=== PATIENT | female | born 2000 | race Caucasian/White ===

== ENCOUNTER 2021-08-11 16:16 | Outpatient (RCR) | payer OTHER, SELFPAY ==
[2021-08-13] MEDS: RHO(D) IMMUNE GLOBULIN 300 MCG/2 ML SYRINGE IM (11:54)
== END 2021-11-09 23:59 | disposition home or self-care (01) ==
LOC: ANHLAB 16:16
PROVIDERS: PCP Obstetrics & Gynecology; Visit Provider Obstetrics & Gynecology
DX: Z29.13 Encounter for prophylactic Rho(D) immune globulin (principal); O26.859 Spotting complicating pregnancy, unspecified trimester; Z3A.00 Weeks of gestation of pregnancy not specified
CPT/HCPCS: 36415; 85461; 90384; 96372; J2790

== ENCOUNTER 2021-12-11 14:40 | Emergency (ER) | payer OTHER, SELFPAY ==
[2021-12-11 14:46] VITALS: BP 107/70; PULSE 100; RESP 18; TEMP 36.2; O2SAT 99
[2021-12-11] MEDS: SODIUM CHLORIDE 0.9% IV 1,000 ML 999 ML IV CONT (15:45)
[2021-12-11 15:55] LABS: Basophils Percent Auto 0.2 % (0.2-1.2); Eosinophils Absolute Auto 0.1 K/mm3 (0-0.3); Eosinophils Percent Auto 0.6 % (0-4.4); Hematocrit 32.3 % (37.0-47.0); Hemoglobin 10.5 g/dL (12.0-15.0); Immature Granulocyte Absolute 0.03 K/mm3 (0.00-0.031); Immature Granulocyte Percent A 0.3 % (0-0.5); Lymphocytes Absolute Auto 1.97 K/mm3 (0.9-3.2); Lymphocytes Percent Auto 21.7 % (18.3-44.2); Mean Corpuscular HGB Conc 32.5 g/dl (32-36); Mean Corpuscular Hemoglobin 27.3 pg (26-34); Mean Corpuscular Volume 83.9 fl (80-100); Mean Platelet Volume 10.9 fl (7.4-10.4); Monocytes Absolute Auto 0.5 K/mm3 (0.1-0.6); Monocytes Percent Auto 5.2 % (2.6-8.5); Neutrophils Absolute Auto 6.5 K/mm3 (1.3-6.7); Platelet Count Result 213 k/mm3 (150-375); Red Blood Count 3.85 M/mm3 (4.2-5.4); Red Cell Distribution Width 14.1 % (11.5-14.5); White Blood Count 9.1 K/mm3 (4.5-10.0)
--- NOTE | 2021-12-11 16:04 | PC.NURSE ---
patient refuses morphine for pain
[2021-12-11 16:05] LABS: Alanine Aminotransferase 14 U/L (6-35); Albumin Level 3.7 g/dL (3.5-5.1); Alkaline Phosphatase 83 U/L (38-126); Anion Gap 7 mmol/L (8-16); Aspartate Amino Transferase 18 U/L (14-36); Bilirubin,Total 0.3 mg/dL (0.2-1.3); Blood Urea Nitrogen 4 mg/dL (7-17); Calcium 8.4 mg/dL (8.4-10.2); Carbon Dioxide 23 mmol/L (22-30); Chloride 104 mmol/L (98-107); Estimated CRCL calculation 159 ml/min; Estimated Glomerular Filt Rate > 60; Glucose 101 mg/dL (65-110); Lipase 50 U/L (23-300); Sodium 134 mmol/L (137-145)
[2021-12-11 16:32] VITALS: BP 110/68; PULSE 78; RESP 18; O2SAT 99
--- NOTE | 2021-12-11 16:41 | ED.ABDPAIN ---
HPI - Abdominal Pain General Chief Complaint: Abdominal Pain Stated Complaint: epigastric burning Time Seen by Provider: 12/11/21 15:09 History of Present Illness HPI narrative: Patient is a 21-year-old female who presents ER with concerns for gallbladder issues. Reports she had previous where she had gallbladder issues at 39 weeks. It sounds as though it is what was cholestasis and not cholecystitis. She has not had her gallbladder removed. She reports she woke up today and she has been having discomfort in the epigastrium that radiates around both sides. No nausea or vomiting. No pain with eating or drinking. No fevers or chills or sweats. She is 25 weeks and just station. She feels baby moving. No vaginal bleeding or discharge. No urinary frequency urgency or dysuria. Has not found any modifying factors. Related Data Allergies Allergy/AdvReac Type Severity Reaction Status Date / Time No Known Allergies Allergy Unverified 08/17/21 10:28 Review of Systems Review of Systems: All systems reviewed & are unremarkable except as noted in HPI and below Constitutional: Constitutional: Denies chills, Denies fatigue and Denies fever(s) ENT: Denies nasal congestion and Denies sore throat Cardiovascular: Cardiovascular: Denies chest pain, Denies rapid heart rate and Denies radiating jaw, neck or arm pain Respiratory: Respiratory: Denies cough and Denies dyspnea Gastrointestinal: Gastrointestinal: Reports abdominal pain, Denies diarrhea, Denies nausea and Denies vomiting Genitourinary: Genitourinary: Denies abnormal vaginal bleeding, Denies nocturia, Denies dysuria, Denies pelvic pain and Denies flank pain PMFSH Past Medical History Medical History (Updated 12/11/21 @ 17:39 by Farshad Nevarez MD) Acute anxiety Depression PTSD (post-traumatic stress disorder) Surgical History Surgical History (Updated 12/11/21 @ 16:45 by Farshad Nevarez MD) No pertinent past surgical history Family History Family History Other Breast cancer Cerebrovascular accident Social History Social History (Updated 08/17/21 @ 10:29 by Maria C Gonzalez MA) Smoking status: Unknown if ever smoked Alcohol intake: never Substance use: former Substance use type: marijuana Gender identity (if verbalized by the patient): Female Sexual Orientation (if Verbalized by the Patient): Straight or Heterosexual Exam Narrative: GENERAL: Well-appearing, well-nourished, and in no acute distress. HEAD: Normocephalic, atraumatic. EYES: PERRL and EOMI. ENT: Mucous membranes moist. CHEST: Clear to auscultation. No respiratory distress. HEART: Regular rate and rhythm. Normal peripheral pulses. ABDOMEN: Soft, nontender, nondistended. Uterus palpated just above the umbilicus. EXTREMITIES: Normal range of motion. No edema. SKIN: Warm, dry, no rash. NEURO: Alert and oriented x3. PSYCH: Normal mood and affect. Course Course Emergency Course: Patient resting comfortably after hydration. Declined pain medication. Discussed treatment plan and need for follow-up and patient verbalized understanding. Vital Signs Vital signs: Vital Signs Temperature 97.2 F L 12/11/21 14:46 Pulse Rate 100 12/11/21 14:46 Respiratory Rate 18 12/11/21 14:46 Blood Pressure 107/70 12/11/21 14:46 Pulse Oximetry 99 12/11/21 14:46 Oxygen Delivery Room Air 12/11/21 14:46 Temperature 97.2 F L 12/11/21 14:46 Pulse Rate 78 12/11/21 16:32 Respiratory Rate 18 12/11/21 16:32 Blood Pressure 110/68 12/11/21 16:32 Pulse Oximetry 99 12/11/21 16:32 Oxygen Delivery Room Air 12/11/21 14:46 MDM - Abdominal Pain Lab Data Result diagrams: 12/11/21 15:42 12/11/21 15:42 Labs: Lab Results 12/11/21 12/11/21 Range/Units 15:42 15:42 WBC 9.1 (4.5-10.0) K/mm3 RBC 3.85 L (4.2-5.4) M/mm3 Hgb 10.5 L (12.0-15.0) g/dL Hct
[2021-12-11 17:54] VITALS: BP 112/68; PULSE 80; RESP 18; O2SAT 99
== END 2021-12-11 17:55 | disposition home or self-care (01) ==
PROVIDERS: Emergency Provider Emergency Medicine
DX: O26.892 Other specified pregnancy related conditions, second trimester (principal); R10.13 Epigastric pain; Z3A.25 25 weeks gestation of pregnancy
CPT/HCPCS: 36415; 80053; 83690; 85025; 96360; 99283; J7030

== ENCOUNTER 2022-01-05 16:04 | Emergency (ER) | payer OTHER, SELFPAY ==
[2022-01-05] VITALS (7 sets, daily range): BP systolic 100–120; BP diastolic 70–82; PULSE 75–105; RESP 13–27; TEMP 36.9; O2SAT 98–100
--- NOTE | ~2022-01-05 | CT_ITS ---
EXAMINATION: CTA chest PE protocol DATE: 01/05/2022 17:19 INDICATION: Chest pain and shortness of breath TECHNIQUE: Computed tomography (CT) pulmonary angiogram of the chest was performed with 100 mL Omnipa que-350 intravenous contrast. Additional 3D reconstructions utilizing coronal maximum intensity proje ction (MIP) were performed. Automated exposure control and iterative reconstruction technique were em ployed. The dose-length product was 370.64 mGy-cm. COMPARISON: None FINDINGS: Excellent contrast opacification of the pulmonary arteries. There is mild streak artifact from dense contrast in the superior vena cava and right atrium. No significant motion artifact. No pulmonary emb olism. Small lung volumes with mild dependent atelectasis in the bilateral lower lobes. No pulmonary edema, pneumonia, pulmonary edema or pleural effusion. Calcified right lower lobe nodule consistent w ith old granulomatous disease. Heart size is normal. No pericardial effusion. Thoracic aorta is summer l in caliber with no dissection. No pathologically enlarged thoracic lymphadenopathy. Bones are unrem arkable. IMPRESSION: 1. No pulmonary embolism or other acute cardiopulmonary disease. Reviewed, dictated and finalized at location A. ENT SAFETY OFFICER
--- NOTE | ~2022-01-05 | XR_ITS ---
EXAMINATION: XR chest 1V portable DATE: 01/05/2022 16:48 INDICATION: Chest pain and shortness of breath during early third trimester . TECHNIQUE: AP view of the chest was obtained. COMPARISON: None FINDINGS: The lungs are clear with no focal airspace opacities, pulmonary edema, pleural effusion or pneumothor ax. The cardiomediastinal silhouette is normal. Visualized bones and soft tissues are unremarkable. IMPRESSION: 1. Normal chest radiograph. Reviewed, dictated and finalized at location A. ACT INSTRUCTOR IMPRESSION: 1. Normal chest radiograph.
[2022-01-05 16:45] LABS: Basophils Percent Auto 0.4 % (0.2-1.2); Eosinophils Percent Auto 0.4 % (0-4.4); Hematocrit 31.7 % (37.0-47.0); Hemoglobin 10.2 g/dL (12.0-15.0); Immature Granulocyte Absolute 0.04 K/mm3 (0.00-0.031); Immature Granulocyte Percent A 0.4 % (0-0.5); Lymphocytes Absolute Auto 1.93 K/mm3 (0.9-3.2); Lymphocytes Percent Auto 18.7 % (18.3-44.2); Mean Corpuscular HGB Conc 32.2 g/dl (32-36); Mean Corpuscular Hemoglobin 27.1 pg (26-34); Mean Corpuscular Volume 84.3 fl (80-100); Monocytes Absolute Auto 0.6 K/mm3 (0.1-0.6); Neutrophils Absolute Auto 7.7 K/mm3 (1.3-6.7); Neutrophils Percent Auto 74.1 % (45.5-73.1); Platelet Count Result 217 k/mm3 (150-375); Red Blood Count 3.76 M/mm3 (4.2-5.4); Red Cell Distribution Width 13.9 % (11.5-14.5); White Blood Count 10.3 K/mm3 (4.5-10.0)
[2022-01-05 16:54] LABS: Alanine Aminotransferase 14 U/L (6-35); Albumin Level 3.8 g/dL (3.5-5.1); Alkaline Phosphatase 100 U/L (38-126); Anion Gap 9 mmol/L (8-16); Aspartate Amino Transferase 18 U/L (14-36); Bilirubin,Total 0.3 mg/dL (0.2-1.3); Blood Urea Nitrogen 6 mg/dL (7-17); Calcium 8.7 mg/dL (8.4-10.2); Carbon Dioxide 21 mmol/L (22-30); Chloride 103 mmol/L (98-107); Estimated CRCL calculation 162 ml/min; Estimated Glomerular Filt Rate > 60; Glucose 73 mg/dL (65-110); Potassium 4.3 mmol/L (3.4-5.0); Sodium 133 mmol/L (137-145)
[2022-01-05 16:55] LABS: INR 1.1; Partial Thromboplastin Time 28.1 SECONDS (22.3-36.8); Prothrombin Time 13.4 Seconds (11.1-14.7)
[2022-01-05 16:59] LABS: D Dimer 1.38 ug/mL (<0.48)
[2022-01-05 17:06] LABS: Troponin I < 0.012 ng/mL (0.000-0.034)
--- NOTE | 2022-01-05 17:45 | ECG_ITS ---
Measurements Intervals [place] Rate: 87 P: 5 IA: 131 QRS: 23 QRSD: 76 T: 3 QT: 338 QTc: 408 Interpretive Statements SINUS RHYTHM BORDERLINE ST-T WAVE ABNORMALITY- INFERIOR LEADS BASELINE ARTIFACT- I, II BORDERLINE ECG NO PREVIOUS ECG AVAILABLE FOR COMPARISON Electronically Signed On 01-05-2022 20:52:37 BAND TIER by Alessio Steven D.O.
--- NOTE | 2022-01-05 18:56 | ED.CHESTPAIN ---
HPI - Chest Pain General Chief Complaint: Chest Pain Stated Complaint: chest pain Time Seen by Provider: 01/05/22 16:26 History of Present Illness HPI narrative: Patient is a 21-year-old female who presents ER with chest pain. She reports that its occasionally sharp pain in the center and then will radiate to the left side, full ache and pressure. Sometimes worsens with extending backwards. She is currently . She reports has been having some intermittent abdominal discomfort and lost couple weeks. Her OB is asked her to go to OB triage to be evaluated but she has not had time and thus not gone. No vaginal bleeding or discharge. No urinary frequency urgency or dysuria. Reports family history of blood clots. No calf pain or leg swelling. Related Data Allergies Allergy/AdvReac Type Severity Reaction Status Date / Time No Known Allergies Allergy Unverified 08/17/21 10:28 Review of Systems Review of Systems: All systems reviewed & are unremarkable except as noted in HPI and below Constitutional: Constitutional: Denies chills, Denies fatigue and Denies fever(s) ENT: Denies nasal congestion and Denies sore throat Cardiovascular: Cardiovascular: Reports chest pain, Denies radiating jaw, neck or arm pain and Denies slow heart rate Respiratory: Respiratory: Denies cough, Reports dyspnea and Denies wheezing Gastrointestinal: Gastrointestinal: Reports abdominal pain, Denies nausea and Denies vomiting Genitourinary: Genitourinary: Denies nocturia, Denies dysuria and Denies flank pain Neurologic: Denies focal weakness and Denies numbness PMFSH Past Medical History Medical History (Updated 01/05/22 @ 18:58 by Farshad Nevarez MD) Acute anxiety Depression PTSD (post-traumatic stress disorder) Surgical History Surgical History (Updated 12/11/21 @ 16:45 by Farshad Nevarez MD) No pertinent past surgical history Family History Family History Other Breast cancer Cerebrovascular accident Social History Social History (Updated 08/17/21 @ 10:29 by Maria C Gonzalez MA) Smoking status: Unknown if ever smoked Alcohol intake: never Substance use: former Substance use type: marijuana Gender identity (if verbalized by the patient): Female Sexual Orientation (if Verbalized by the Patient): Straight or Heterosexual Exam Narrative: GENERAL: Well-appearing, well-nourished, and in no acute distress. HEAD: Normocephalic, atraumatic. EYES: PERRL and EOMI. ENT: Mucous membranes moist. CHEST: Clear to auscultation. No respiratory distress. HEART: Regular rate and rhythm. Normal peripheral pulses. ABDOMEN: Soft, uterus palpated above the umbilicus, nondistended. EXTREMITIES: Normal range of motion. No edema. SKIN: Warm, dry, no rash. NEURO: Alert and oriented x3. PSYCH: Normal mood and affect. Course Course Emergency Course: Patient informed of results. OB has been down here. Patient has a reactive strip. Discharge. Vital Signs Vital signs: Vital Signs Temperature 98.4 F 01/05/22 16:08 Pulse Rate 87 01/05/22 16:08 Respiratory Rate 20 01/05/22 16:08 Blood Pressure 100/73 01/05/22 16:08 Pulse Oximetry 100 01/05/22 16:08 Oxygen Delivery Room Air 01/05/22 16:08 Temperature 98.4 F 01/05/22 16:08 Pulse Rate 75 01/05/22 19:27 Respiratory Rate 16 01/05/22 19:27 Blood Pressure 120/75 01/05/22 19:27 Pulse Oximetry 100 01/05/22 19:27 Oxygen Delivery Room Air 01/05/22 16:08 MDM - Chest Pain Lab Data Result diagrams: 01/05/22 16:40 01/05/22 16:40 Labs: Lab Results 01/05/22 01/05/22 01/05/22 Range/Units 16:40 16:40 16:40 WBC 10.3 H (4.5-10.0) K/mm3 RBC 3.76 L (4.2-5.4) M/mm3 Hgb 10.2 L (12.0-15.0) g/dL Hct 31.7 L (37.0-47.0) % MCV 84.3 (80-100) fl MCH 27.1 (26-34) pg MCHC 32.2 (32-36) g/dl RDW 13.9 (11.5-14.5) % Pl
--- NOTE | 2022-01-05 19:17 | PC.NURSE ---
pt states that she has been feeling lower abdominal pressure and pain for many days and that it does not go away. states that she has not had any vaginal bleeding recently or any leaking of fluid. states positive movement. states she has severe anxiety and that her stomach pain could be due to not eating. States she does not plan on eating today after discharge because she gets fat during and her brain says food is a bad thing . pt also states doctor told her baby is IUGR. educated patient on importance of eating and making sure baby is getting proper nutrients. pt verbalizes understanding of importance of eating but states she still can't do it. ER doctor notified of these statements. NST reactive.
== END 2022-01-05 19:28 | disposition home or self-care (01) ==
PROVIDERS: Emergency Provider Emergency Medicine
DX: O26.893 Other specified pregnancy related conditions, third trimester (principal); R07.9 Chest pain, unspecified; Z3A.29 29 weeks gestation of pregnancy; R94.31 Abnormal electrocardiogram [ECG] [EKG]
CPT/HCPCS: 36415; 71045; 71275; 80053; 84484; 85025; 85380; 85610; 85730; 93005; 99284; Q9967

== ENCOUNTER 2022-01-30 16:40 | Observation (INO) | payer OTHER, SELFPAY ==
[2022-01-30] VITALS (7 sets, daily range): BP systolic 104; BP diastolic 64; PULSE 90–112; O2SAT 95–99; BMI 32.6
--- NOTE | 2022-01-30 18:05 | PC.NURSE ---
Pt taken to ED for evaluation of gallbladder.
--- NOTE | 2022-01-30 18:15 | OBADM ---
This patient, Elmira Soto, admitted to the OB room OB Post 117 for observation. Patient/family oriented to hospital policies and general routines including ID bracelet, bed and alarms, visiting hours, pain management, procedures, bathroom and other care routines, personal items, smoking policy, room service/diet, and visiting hours. Patient/Family are encouraged to report perceived risks to care and to ask questions if they do not understand what they are told or what they should do.
--- NOTE | 2022-02-19 20:36 | PM.OBTRLD ---
OB - Triage/Final Diagnosis Visit Information Comments/Additional reasons for admission: I have assessed the risk for this patient, Elmira Soto, and determined that she would benefit from observation care. Final Diagnosis (1) Abdominal pain: Code(s): R10.9 - Unspecified abdominal pain Status: Acute
== END 2022-01-30 18:00 | disposition home or self-care (01) ==
PROVIDERS: Admitting Provider Obstetrics & Gynecology; Visit Provider Obstetrics & Gynecology
DX: O26.893 Other specified pregnancy related conditions, third trimester (principal); R10.9 Unspecified abdominal pain; Z3A.32 32 weeks gestation of pregnancy
CPT/HCPCS: 84112; G0378; G0379

== ENCOUNTER 2022-01-30 18:01 | Emergency (ER) | payer OTHER, SELFPAY | END 2022-01-30 19:17 | disposition left against medical advice (07) | DX: Z53.21 Procedure and treatment not carried out due to patient leaving prior to being seen by health care provider (principal) | CPT/HCPCS: 99199 ==

== ENCOUNTER 2022-03-04 17:15 | Observation (INO) | payer OTHER, SELFPAY ==
[2022-03-04] VITALS (20 sets, daily range): BP systolic 98–109; BP diastolic 64–74; PULSE 88–121; O2SAT 97–100; BMI 31.8
[2022-03-04] MEDS: CYCLOBENZAPRINE HCL 10 MG TABLET PO (18:54)
--- NOTE | 2022-03-08 05:52 | PM.OBTRLD ---
OB - Triage/Final Diagnosis Visit Information Date of evaluation: 03/04/22 Reason for evaluation: other (fall, rh negative) Comments/Additional reasons for admission: I have assessed the risk for this patient, Elmira Soto, and determined that she would benefit from observation care. Evaluation Laboratory results: Laboratory Tests 03/04/22 18:47 KB Hemoglobin Negative
== END 2022-03-04 23:00 | disposition home or self-care (01) ==
PROVIDERS: Admitting Provider Obstetrics & Gynecology; Visit Provider Obstetrics & Gynecology
DX: Z04.3 Encounter for examination and observation following other accident (principal); O36.0930 Maternal care for other rhesus isoimmunization, third trimester, not applicable or unspecified; Z3A.37 37 weeks gestation of pregnancy
CPT/HCPCS: 36415; 59025; 85460; A9270; G0378; G0379

== ENCOUNTER 2022-03-11 22:02 | Inpatient (IN) | payer OTHER, SELFPAY ==
--- NOTE | 2022-03-11 22:02 | LDADM ---
This patient, Elmira Soto, was admitted to Labor/Delivery/Recovery 106 on 03/11/22 at 22:02. Plans for labor, pain management and were discussed with patient. Patient/family oriented to hospital policies and general routines including ID bracelet, bed and alarms, visiting hours, pain management, procedures, bathroom and other care routines, personal items, smoking policy, room service/diet and guest tray routines, security routines, and visiting hours. Patient/Family are encouraged to report perceived risks to care and to ask questions if they do not understand what they are told or what they should do. See OBIX for further documentation.
[2022-03-11 23:45] VITALS: BP 102/79; PULSE 83
[2022-03-12] VITALS (143 sets, daily range): BP systolic 84–132; BP diastolic 42–82; PULSE 63–169; RESP 15–18; TEMP 36.4–36.8; O2SAT 93–100; BMI 33.0
[2022-03-12] MEDS: LACTATED RINGERS 1,000 ML 125 ML IV CONT ×3 (00:16→04:42)
[2022-03-12 00:52] LABS: Basophils Percent Auto 0.3 % (0.2-1.2); Eosinophils Percent Auto 0.4 % (0-4.4); Hematocrit 28.9 % (37.0-47.0); Immature Granulocyte Absolute 0.03 K/mm3 (0.00-0.031); Immature Granulocyte Percent A 0.3 % (0-0.5); Lymphocytes Absolute Auto 2.24 K/mm3 (0.9-3.2); Lymphocytes Percent Auto 23.4 % (18.3-44.2); Mean Corpuscular HGB Conc 31.1 g/dl (32-36); Mean Corpuscular Hemoglobin 24.1 pg (26-34); Mean Corpuscular Volume 77.5 fl (80-100); Mean Platelet Volume 11.5 fl (7.4-10.4); Monocytes Absolute Auto 0.6 K/mm3 (0.1-0.6); Monocytes Percent Auto 6.1 % (2.6-8.5); Neutrophils Absolute Auto 6.7 K/mm3 (1.3-6.7); Neutrophils Percent Auto 69.5 % (45.5-73.1); Platelet Count Result 206 k/mm3 (150-375); Red Blood Count 3.73 M/mm3 (4.2-5.4); Red Cell Distribution Width 15.8 % (11.5-14.5); White Blood Count 9.6 K/mm3 (4.5-10.0)
--- NOTE | 2022-03-12 00:56 | WPDANESEPPF ---
Anes - Initial Pre Proc Eval Procedure: Labor Epidural Date/Time: 03/12/22 00:56 Surgeon: Casandra Fitzpatrick MD Pre Op Diagnosis: IUP Pre Op Diagnosis: IUP Patient Data Age: 21 Gender: F Height: 1.65 m Weight: 90 kg Last Vital Signs Pulse 83 03/12/22 00:47 BP 108/72 03/12/22 00:47 O2 Del Method Room Air 03/12/22 00:06 Allergies Allergy/AdvReac Type Severity Reaction Status Date / Time No Known Allergies Allergy Verified 03/12/22 00:04 Home Medications Medication Instructions Recorded Confirmed Type vitamin no.102-iron 90 1 cap PO DAILY #90 caps 08/17/21 03/12/22 Rx mg-folate 1 mg-dha 200 mg capsule fluoxetine 20 mg capsule 20 mg PO DAILY 02/22/22 03/12/22 History Laboratory Tests 03/12/22 03/12/22 00:18 00:18 WBC 9.6 K/mm3 K/mm3 (4.5-10.0) RBC 3.73 M/mm3 L M/mm3 (4.2-5.4) Hgb 9.0 g/dL L g/dL (12.0-15.0) Hct 28.9 % L % (37.0-47.0) MCV 77.5 fl L fl (80-100) MCH 24.1 pg L pg (26-34) MCHC 31.1 g/dl L g/dl (32-36) RDW 15.8 % H % (11.5-14.5) Plt Count 206 k/mm3 k/mm3 (150-375) MPV 11.5 fl H fl (7.4-10.4) Immature Gran % (Auto) 0.3 % % (0-0.5) Neut % (Auto) 69.5 % % (45.5-73.1) Lymph % (Auto) 23.4 % % (18.3-44.2) [facility] % (Auto) 6.1 % % (2.6-8.5) Eos % (Auto) 0.4 % % (0-4.4) Baso % (Auto) 0.3 % % (0.2-1.2) Lymph # (Auto) 2.24 K/mm3 K/mm3 (0.9-3.2) [facility] # (Auto) 0.6 K/mm3 K/mm3 (0.1-0.6) Eos # (Auto) 0.0 K/mm3 K/mm3 (0-0.3) Baso # (Auto) 0.0 K/mm3 K/mm3 (0.0-0.1) Abs Immat Gran (auto) 0.03 K/mm3 K/mm3 (0.00-0.031) Absolute Neuts (auto) 6.7 K/mm3 K/mm3 (1.3-6.7) Absolute Nucleated RBC 0.0 K/mm3 K/mm3 (0.0-0.012) Nucleated RBC % 0.0 % % (0.0-0.2) RPR Pending ECG: NSR Patient hx anesthesia problems: none Family hx anesthesia problems: none Results Review: All pre-operative results and documents have been reviewed as part of the pre-operative evaluation. [facility] Past Medical History Medical History Acute anxiety Depression PTSD (post-traumatic stress disorder) Surgical History Surgical History No pertinent past surgical history Family History Family History Grandparent History of blood clots Heart attack Cerebrovascular accident Mother Histoplasmosis Father Drug addict Other Patient's mother is Social History Social History Smoking status: Former smoker Alcohol intake: never Substance use: former Substance use type: marijuana Last use: stopped at 8 wks of Lack of Transportation: YES Lack of Food: Never True Current Housing: I Have Housing Concerned About Future Housing: No Difficulty Paying Gas/Electric Bills: No Difficulty Paying for Meds: No Currently Unemployed: No Education: High School Diploma/GED Difficulty w/ Childcare or Family Care: No Living arrangements: with family Occupation/Education: unemployed Gender identity (if verbalized by the patient): Female Sexual Orientation (if Verbalized by the Patient): Straight or Heterosexual Spiritual care concerns: No Anes - Eval Final PreProcedure Day of Procedure 03/12/22 00:56 Patient weight: normal Heart: regular rate and rhythm Lungs: clear to auscultation Airway: Mallampati scale class II Neurological: alert and oriented Last oral intake: 2 hours ASA classification: II Emergent: no Anesthetic plan: proceed Anesthesia type and monitoring: regional epidural Results Review: All pre-operative results and documents have been reviewed as part of the pre-operative evaluation. Informe
--- NOTE | 2022-03-12 02:39 | WPDANESEPN ---
Anes - Epidural Procedure Note Date/Time: 03/12/22 0103 Consent: I have discussed with the patient/family/POA, the placement of an epidural catheter and the use of epidural narcotic/local anesthetic for labor analgesia and/or postoperative pain management, including associated potential risks, benefits, complications and side effects. I have discussed alternative methods of labor analgesia and/or postoperative pain management. The patient/family/POA, understand(s) and wish(es) to proceed with epidural narcotic/local anesthetic for labor analgesia and/or postoperative pain management. Time-Out: A pre-procedural Time-Out was completed immediately before starting the procedure and confirmed: Patient Identification, Site, Procedure, Patient Position and the Availability of Requisite Equipment. Clinical Indications: Pain c contractions Epidural Insertion Note Patient position: sitting Skin prep: chlorhexidine and sterile drape Needle: 17g Tuohy Catheter: 20g Unstyleted Technique: Loss of resistance. Level of insertion: L4/5 Catheter skin fabiola (cm): 5 Length in epidural space (cm): 10 Skin anesthesia: lidocaine 1% Test dose: 1.5% Lidocaine with [id number] Epi, negative for subarachnoid Inj and negative for intravascular Inj Time of test dose: 01:12 Observations: tolerated well
--- NOTE | 2022-03-12 07:01 | PM.IMHP ---
H&P: HPI History of Present Illness Date/Time: 03/12/22 07:01 Chief Complaint: labor Narrative: Elmira is a at 38.5 who presented in labor last night. complicated by anxiety and depression. Review of Systems Review of Systems: All systems reviewed & are unremarkable except as noted in HPI and below PMFSH Past Medical History Medical History Acute anxiety Depression PTSD (post-traumatic stress disorder) Surgical History Surgical History No pertinent past surgical history Family History Family History Grandparent History of blood clots Heart attack Cerebrovascular accident Mother Histoplasmosis Father Drug addict Other Patient's mother is Social History Social History Smoking status: Former smoker Alcohol intake: never Substance use: former Substance use type: marijuana Last use: stopped at 8 wks of Lack of Transportation: YES Lack of Food: Never True Current Housing: I Have Housing Concerned About Future Housing: No Difficulty Paying Gas/Electric Bills: No Difficulty Paying for Meds: No Currently Unemployed: No Education: High School Diploma/GED Difficulty w/ Childcare or Family Care: No Living arrangements: with family Occupation/Education: unemployed Gender identity (if verbalized by the patient): Female Sexual Orientation (if Verbalized by the Patient): Straight or Heterosexual Spiritual care concerns: No Meds Home Medications and Allergies Home Medications Medication Instructions Recorded Confirmed Type vitamin no.102-iron 90 1 cap PO DAILY #90 caps 08/17/21 03/12/22 Rx mg-folate 1 mg-dha 200 mg capsule fluoxetine 20 mg capsule 20 mg PO DAILY 02/22/22 03/12/22 History Allergies Allergy/AdvReac Type Severity Reaction Status Date / Time No Known Allergies Allergy Verified 03/12/22 00:04 Vital Signs Vital Signs - 24 hr 03/11/22 23:45 03/12/22 00:00 03/12/22 00:15 Temperature Pulse Rate 83 80 103 H Respiratory Rate Blood Pressure 102/79 105/76 107/67 Pulse Oximetry Oxygen Delivery 03/12/22 00:47 03/12/22 01:00 03/12/22 01:04 Temperature Pulse Rate 83 85 Respiratory Rate Blood Pressure 108/72 105/71 Pulse Oximetry 100 Oxygen Delivery 03/12/22 01:05 03/12/22 01:09 03/12/22 01:12 Temperature Pulse Rate 90 88 Respiratory Rate Blood Pressure 113/79 113/75 Pulse Oximetry 100 Oxygen Delivery 03/12/22 01:14 03/12/22 01:15 03/12/22 01:16 Temperature Pulse Rate 74 Respiratory Rate Blood Pressure 113/77 Pulse Oximetry 100 100 Oxygen Delivery 03/12/22 01:19 03/12/22 01:20 03/12/22 01:21 Temperature Pulse Rate 107 H 88 Respiratory Rate Blood Pressure 105/69 113/72 Pulse Oximetry 100 Oxygen Delivery 03/12/22 01:23 03/12/22 01:25 03/12/22 01:27 Temperature Pulse Rate 81 78 Respiratory Rate Blood Pressure 98/60 L 105/65 Pulse Oximetry 100 Oxygen Delivery 03/12/22 01:30 03/12/22 01:31 03/12/22 01:33 Temperature Pulse Rate 85 79 Respiratory Rate Blood Pressure 98/61 L 111/64 Pulse Oximetry 100 100 Oxygen Delivery 03/12/22 01:36 03/12/22 01:39 03/12/22 01:41 Temperature Pulse Rate 96 79 Respiratory Rate Blood Pressure 98/64 L 105/61 Pulse Oximetry 100 99 Oxygen Delivery 03/12/22 01:42 03/12/22 01:46 03/12/22 01:51 Temperature Pulse Rate 77 89 Respiratory Rate Blood Pressure 104/66 99/66 L Pulse Oximetry 99 98 Oxygen Delivery 03/12/22 01:56 03/12/22 01:57 03/12/22 02:00 Temperature Pulse Rate 81 Respiratory Rate Blood Pressure 106/76 Pulse Oximetry 100 99 Oxygen Delivery
--- NOTE | 2022-03-12 08:25 | PM.OBPRVD ---
OB - Delivery Note Procedure Delivery date: 03/12/22 Procedure: Delivery augmentation: Rupture of Membranes Delivery monitor: External FHT and External Uterine Route of delivery: Laceration Description: None Specimen: No Quantitative Blood Loss (ml): 410 Anesthesia type: Epidural Disposition: Floor Narrative: With adequate expulsive efforts by the mother, the baby's head was delivered OA. The baby's anterior shoulder was delivered under the pubic symphysis without difficulty. The posterior shoulder and the rest of the baby delivered without difficulty. The infant was placed on the mothers chest and suctioned and stimulated. The cord was clamped and cut after 30 seconds. Mother and baby both stable. [place] Baby Date of : 03/12/22 Time of : 08:07 Weeks of gestation at delivery: 38 Infant gender: Female Weight (pounds): 6 Weight (ounces): 10 presentation: vertex Placenta delivery description: Spontaneous Cord Vessel Description: 3 Vessels and Delayed Cord Clamping score one minute: 7 score five minutes: 9
[2022-03-12] MEDS: OXYTOCIN 30 UNITS/NS 500 ML 30 UNITS/500 ML BAG 125 UNITS IV CONT (08:35)
[2022-03-12] MEDS: WITCH HAZEL 40 PADS 1 PAD TOPICAL (10:30)
[2022-03-12] MEDS: BENZOCAINE 20% AER SPR (*SP) 56 GM CAN 1 SPRAY TOPICAL (10:30)
--- NOTE | 2022-03-12 10:55 | PC.NURSE ---
Patient transferred to post room #292 via wheelchair. Support person present. Oriented to unit, room, information board, rooming in, admission packet and security measures. Patient verbalizes understanding.
[2022-03-12] MEDS: IBUPROFEN 600 MG TABLET PO ×2 (11:22→18:24)
--- NOTE | 2022-03-12 12:30 | PC.NURSE ---
Pt in bed holding baby on chest, very tired. RN and offline editor have advised pt to not fall asleep holding baby and to have dad take the baby if she is going to fall asleep. Pt agrees.
[2022-03-12] MEDS: ACETAMINOPHEN 325 MG TABLET 650 MG PO (15:12)
[2022-03-12] MEDS: FLUoxetine HCL 20 MG CAPSULE PO (21:12)
[2022-03-13] MEDS: IBUPROFEN 600 MG TABLET PO ×2 (00:35→08:17)
[2022-03-13 04:44] LABS: Hematocrit 28.1 % (37.0-47.0); Hemoglobin 8.6 g/dL (12.0-15.0)
[2022-03-13 04:45] VITALS: BP 105/73; PULSE 73; RESP 18; TEMP 36.3; O2SAT 100
[2022-03-13 05:55] LABS: Rapid Plasma Reagin Non-Reactive (NonReactive)
--- NOTE | 2022-03-13 07:59 | PM.OBPNVD ---
OB - PN: Subj Subjective Date/time seen: 03/13/22 07:59 Patient comments: no complaints and pain well controlled baby status: nursing well [place] feeding status: exclusively breast feeding Narrative: would like DC home today. OB - PN: Obj Data Labs 03/13/22 04:24 Labs: Laboratory Results - last 24 hr 03/12/22 03/13/22 03/13/22 00:18 04:24 04:24 Hgb 8.6 L Hct 28.1 L RPR Non-reactive Blood Type O Negative Antibody Screen Negative Screen Negative Baby's Blood Type O pos Baby's TIN Negative Doses of RhIg Required 1 OB - PN A/P Plan day: 1 Plan: routine care and discharge home Comments: anemic, but started low, minimal drop. IV out last night per pt request, refusing oral iron. asymptomatic. DC home today. DC instructions given. Time Spent With Patient Time: Total time spent is greater than 50% in coordination of care (as documented) at patient's floor/unit and/or counseling patient: Time with patient: less than 15 minutes Exam Narrative: NAD abdomen soft, nontender, fundus firm below the umbilicus Extremities nontender, 1+ edema
[2022-03-13] MEDS: POLYSACCHARIDE IRON COMPLEX 150 MG CAPSULE PO (08:09)
--- NOTE | 2022-03-13 08:16 | P.DS_ITS ---
DS: Admitting Diagnosis Discharge Date 03/13/22 Admitting Diagnosis labor at term DS: Discharge Diagnosis Discharge Diagnosis (1) , delivered: Code(s): O80 - Encounter for full-term uncomplicated delivery Status: Acute OB - DS: Summary Hospital Course Hospital Course: Elmira was admitted in labor at term. She proceeded to have an uncomplicated vaginal delivery and course and was discharged home on PPD 1. OB Procedures : Ultrasound OB Procedures Intrapartum: Spontaneous Vag Delivery OB Procedures: : None Peripartum Data Delivery Method: Natural Vaginal Status at Discharge Functional status at discharge: independent ambulation Time Spent with Patient Time attestation: Total time spent providing and/or coordinating discharge services: Exam Narrative: NAD abdomen soft, appropriately tender Ext non tender, 1+ edema DS: Data Data Completed and Pending Labs on day of discharge: Labs from last 24 hours 03/13/22 03/13/22 03/12/22 04:24 04:24 00:18 Hgb 8.6 L Hct 28.1 L RPR Non-reactive Blood Type O Negative Antibody Screen Negative Screen Negative Baby's Blood Type O pos Baby's TIN Negative Doses of RhIg Required 1 Discharge Plan Discharge Attending physician on discharge: Casandra Fitzpatrick Discharging Clinician: Casandra Fitzpatrick Anticipated Discharge Date/Time: 03/13/22 08:03 Patient Disposition: Home, Self-Care Activity: pelvic rest Diet: regular Patient Instructions: Antibiotic Form Stand Alone Forms: General Discharge Information Follow-up/Referrals: Casandra Fitzpatrick MD [Physician] - 4 Weeks Discharge Medications: Continued PNV [id number] 90 mg iron- 1 mg-200 mg capsule 1 cap PO DAILY Qty: 90 4RF fluoxetine 20 mg Capsule 20 mg PO DAILY Date of admission: 03/11/22 22:02 Primary Care Provider: PHYSICIAN,WELFARE VISITOR Admitting Provider: Casandra Fitzpatrick Attending physician on admission: Casandra Fitzpatrick Condition: Stable
[2022-03-13 08:30] VITALS: BP 103/68; PULSE 77; RESP 18; TEMP 36.7; O2SAT 100
--- NOTE | 2022-03-13 09:20 | PC.NURSE ---
[id number] Mother verbalizes she is able to independently latch with appropriate positioning/alignment. She denies any nipple discomfort and is responsively . Infant is currently meeting outcomes for weight, output, jaundice and feeding frequencies of 8-12 times in 24 hours. Mother declines any additional assistance/education at this time. Mother is encouraged to call for assistance if her infant doesn?t latch or there is discomfort with latching. Mother voiced understanding of information shared and the mom reminded of the mom/baby guide for an additional resource. Reported to the primary RN.
[2022-03-13] MEDS: RHO(D) IMMUNE GLOBULIN 300 MCG/2 ML SYRINGE IM (09:47)
[2022-03-14 08:44] VITALS: BP 100/62; PULSE 82; RESP 18; TEMP 36.8; O2SAT 100
== END 2022-03-13 11:09 | disposition home or self-care (01) | DRG 560 ==
LOC: ANHLDR 03-12 00:58 → ANHOB2 03-12 11:01
PROVIDERS: Admitting Provider Obstetrics & Gynecology; Visit Provider Obstetrics & Gynecology
DX: O62.3 Precipitate labor (principal); O99.344 Other mental disorders complicating childbirth; F32.A Depression, unspecified; Z37.0 Single live birth; Z3A.38 38 weeks gestation of pregnancy; F41.9 Anxiety disorder, unspecified; F43.10 Post-traumatic stress disorder, unspecified
CPT/HCPCS: 36415; 85014; 85018; 85025; 85461; 86592; 86850; 86900; 86901; 90384; A9270; J2590; J2790; J2795; J7120

== ENCOUNTER 2022-03-14 05:00 | Outpatient (RCR) | payer OTHER, SELFPAY ==
[2022-02-13 18:07] LABS: Alanine Aminotransferase 14 U/L (6-35); Albumin Level 3.5 g/dL (3.5-5.1); Alkaline Phosphatase 112 U/L (38-126); Anion Gap 6 mmol/L (8-16); Aspartate Amino Transferase 17 U/L (14-36); Bilirubin,Total 0.3 mg/dL (0.2-1.3); Blood Urea Nitrogen 4 mg/dL (7-17); Calcium 8.2 mg/dL (8.4-10.2); Carbon Dioxide 22 mmol/L (22-30); Chloride 108 mmol/L (98-107); Estimated Glomerular Filt Rate > 60; Glucose 87 mg/dL (65-110); Potassium 3.8 mmol/L (3.4-5.0); Sodium 136 mmol/L (137-145)
[2022-02-13 18:10] VITALS: BP 101/61; PULSE 92
[2022-02-17 16:06] LABS: Chenodeoxycholic Acid 0.7 umol/L (< OR = 3.9); Cholic Acid <0.5 umol/L (< OR = 2.8); Deoxycholic Acid <0.5 umol/L (< OR = 2.3); Total Bile Acids <1.5 umol/L (< OR = 8.3)
== END 2022-05-14 23:59 | disposition home or self-care (01) ==
LOC: ANHOBOP 05:00
PROVIDERS: Visit Provider Obstetrics & Gynecology
DX: O99.891 Other specified diseases and conditions complicating pregnancy (principal); L29.8 Other pruritus; Z3A.34 34 weeks gestation of pregnancy
CPT/HCPCS: 36415; 59025; 80053; 82542

== ENCOUNTER 2022-04-03 21:40 | Emergency (ER) | payer OTHER, SELFPAY ==
--- NOTE | 2022-04-03 21:54 | ECG_ITS ---
Measurements Intervals [place] Rate: 73 P: 60 IL: 123 QRS: 67 QRSD: 84 T: 39 QT: 378 QTc: 417 Interpretive Statements SINUS RHYTHM NORMAL ECG COMPARED TO ECG 01/05/2022 16:12:21 NO SIGNIFICANT CHANGES Electronically Signed On 04-04-2022 14:10:35 BRANCH OPERATION EVALUATION MANAGER by Luis Maharaj M.D.
[2022-04-03 22:15] VITALS: BP 94/56; PULSE 82; RESP 16; TEMP 37.2; O2SAT 100
[2022-04-03 22:37] LABS: Basophils Absolute Auto 0.1 K/mm3 (0.0-0.1); Basophils Percent Auto 0.6 % (0.2-1.2); Eosinophils Absolute Auto 0.1 K/mm3 (0-0.3); Eosinophils Percent Auto 1.2 % (0-4.4); Hematocrit 34.2 % (37.0-47.0); Hemoglobin 10.2 g/dL (12.0-15.0); Immature Granulocyte Absolute 0.03 K/mm3 (0.00-0.031); Immature Granulocyte Percent A 0.3 % (0-0.5); Lymphocytes Absolute Auto 1.98 K/mm3 (0.9-3.2); Lymphocytes Percent Auto 19.2 % (18.3-44.2); Mean Corpuscular HGB Conc 29.8 g/dl (32-36); Mean Corpuscular Hemoglobin 23.9 pg (26-34); Mean Corpuscular Volume 80.1 fl (80-100); Mean Platelet Volume 10.9 fl (7.4-10.4); Monocytes Absolute Auto 0.5 K/mm3 (0.1-0.6); Monocytes Percent Auto 5.2 % (2.6-8.5); Neutrophils Absolute Auto 7.6 K/mm3 (1.3-6.7); Neutrophils Percent Auto 73.5 % (45.5-73.1); Platelet Count Result 285 k/mm3 (150-375); Red Blood Count 4.27 M/mm3 (4.2-5.4); Red Cell Distribution Width 16.4 % (11.5-14.5); White Blood Count 10.3 K/mm3 (4.5-10.0)
[2022-04-03 22:50] LABS: Alanine Aminotransferase 97 U/L (6-35); Albumin Level 4.2 g/dL (3.5-5.1); Alkaline Phosphatase 246 U/L (38-126); Anion Gap 7 mmol/L (8-16); Aspartate Amino Transferase 156 U/L (14-36); Bilirubin,Total 0.5 mg/dL (0.2-1.3); Blood Urea Nitrogen 12 mg/dL (7-17); Calcium 8.3 mg/dL (8.4-10.2); Carbon Dioxide 28 mmol/L (22-30); Chloride 106 mmol/L (98-107); Estimated CRCL calculation 115 ml/min; Estimated Glomerular Filt Rate > 60; Glucose 88 mg/dL (65-110); Potassium 4.1 mmol/L (3.4-5.0); Sodium 141 mmol/L (137-145)
[2022-04-03 23:17] LABS: Anisocytosis 1+ (NORMAL); Hypochromasia 2+ (NORMAL); Large Platelets Present; Ovalocytes 1+ (NORMAL); Platelet Estimate Adequate (Adequate); Schistocytes None Seen (NORMAL)
--- NOTE | 2022-04-03 23:17 | PC.NURSE ---
Pt approached triage desk and states that her son fell at home and is being seen at a different hospital. Pt states she would like to leave to be with her son. Pt educated in risks of leaving before seeing provider, verbalized understanding. Pt ambulated out of ED with steady gait, in no obvious distress.
[2022-04-03 23:44] LABS: Lipase 13019 U/L (23-300)
== END 2022-04-04 00:06 | disposition left against medical advice (07) ==
LOC: ANHED 23:39
PROVIDERS: Emergency Provider Emergency Medicine
DX: R10.13 Epigastric pain (principal)
CPT/HCPCS: 36415; 80053; 83690; 85025; 93005; 99199

== ENCOUNTER 2022-04-05 08:46 | Outpatient (CLI) | payer OTHER, SELFPAY ==
--- NOTE | ~2022-04-05 | US_ITS ---
US right upper quadrant INDICATION: Gallbladder disorder. PROCEDURE: Realtime right upper abdominal ultrasound. COMPARISON: No prior studies for comparison. FINDINGS: The pancreas is normal without focal mass or pancreatic ductal dilation. Liver echotexture is diffusely increased, consistent with fatty infiltration. There is normal directional flow in the portal vein. There are gallstones. Common bile duct measures 4.9 mm. No sonographic Denton's sign. IMPRESSION: 1: Cholelithiasis. 2: Hepatic steatosis. Reviewed, dictated and finalized at location B. SCAPE DESIGNER
== END 2022-04-05 08:47 | disposition home or self-care (01) ==
LOC: ANHIMG 08:47
PROVIDERS: Visit Provider Obstetrics & Gynecology
DX: K82.9 Disease of gallbladder, unspecified (principal); K80.20 Calculus of gallbladder without cholecystitis without obstruction; K76.0 Fatty (change of) liver, not elsewhere classified
CPT/HCPCS: 76705

== ENCOUNTER 2022-04-10 12:31 | Outpatient (CLI) | payer OTHER, SELFPAY ==
[2022-04-10 13:56] LABS: Alanine Aminotransferase 61 U/L (6-35); Albumin Level 4.2 g/dL (3.5-5.1); Alkaline Phosphatase 125 U/L (38-126); Amylase 82 U/L (30-110); Aspartate Amino Transferase 36 U/L (14-36); Bilirubin,Total 0.4 mg/dL (0.2-1.3); Lipase 134 U/L (23-300)
== END 2022-04-10 12:32 | disposition home or self-care (01) ==
PROVIDERS: Visit Provider Surgery
DX: K81.1 Chronic cholecystitis (principal); Z01.818 Encounter for other preprocedural examination
CPT/HCPCS: 36415; 80076; 82150; 83690

== ENCOUNTER 2022-04-12 00:40 | Day surgery (SDC) | payer OTHER, SELFPAY ==
[2022-04-07 15:20] VITALS: BMI 30.4
--- NOTE | 2022-04-07 15:27 | PC.NURSE ---
Report to the Outpatient Waiting Room, entrance under the green pavilion located off [facility], at time 9:00 on date 04/12/22. Planned Procedure Time: 11:00. Time changes happen often and if your time is changed the preop area will call you the afternoon before. - You and your visitor will be asked to self-screen and do not enter if you have any COVID symptoms. - Only one visitor is requested with a max of two and NO children visitors are allowed at this time. - The patient visitor may be requested to leave or wait in car when not with patient due to distancing restrictions. - A mask is optional within the hospital at this time. Patients may have clear liquids (water, carbonated beverages, clear teas, apple juice) until 3 hours prior to surgery (8:00) with a maximum of 20 ounces. - No food from midnight until time of surgery Take the following medications with a SIP of water the morning of surgery: NONE DO NOT STOP ANY OF YOUR OTHER PRESCRIPTION MEDICATIONS PRIOR TO SURGERY?EXCEPT THE FOLLOWING Medications to discontinue per physician: N/A Date to take last dose: N/A Please no make-up, nail hungarian, hairspray, perfume, deodorant, or body powder the day of surgery. No jewelry (including any body piercings) or valuables the day of surgery, leave them at home. Please take a shower or bath the night before, or the morning of, surgery with an antibacterial soap (HIBICLENS). Wear comfortable, loose fitting clothing. - Jewelry must be removed prior to entering the operating room. Rings and piercings that are not removed may be cut off. - The hospital will not accept responsibility for valuables. - Please leave all valuables, including medications, at home the day of surgery. If you are going home after surgery, a licensed tilt tray driver must drive you home. - NO public transportation without another adult if you receive anesthesia. - We recommend that an adult stay with you for 24 hours following discharge. - We also recommend that you do not drive, make important decision, drink alcoholic beverages, or take any drugs that were not prescribed by your health care provider for at least 24 hours after your discharge time. Follow any additional instructions given to you from your surgeon. If you or anyone in your household have experienced Covid symptoms in the past week, please notify your surgeon or the nurse liaison at the phone number below for possible testing. Telephone instructions given to MELISSA YEE and asked if any additional questions and then verbalized understanding. Patient advised to call surgeon office or pre surgery nurse liaison [phone] if any additional questions.
[2022-04-12] VITALS (10 sets, daily range): BP systolic 87–118; BP diastolic 61–80; PULSE 56–81; RESP 10–19; TEMP 36.5–37.1; O2SAT 98–100
[2022-04-12] MEDS: LACTATED RINGERS 1,000 ML 30 ML IV CONT ×2 (09:32→12:00)
--- NOTE | 2022-04-12 09:33 | WPDANESEPPF ---
Anes - Initial Pre Proc Eval Procedure: Operation Date: 04/12/22 11:00 Proposed Procedures p Laparoscopic Cholecystectomy - Ava Zimmerman MD Date/Time: 04/12/22 09:33 Surgeon: Ava Zimmerman MD Pre Op Diagnosis: chronic cholecystitis Patient Data Age: 22 Gender: F Height: 1.65 m Weight: 83 kg Allergies Allergy/AdvReac Type Severity Reaction Status Date / Time No Known Allergies Allergy Verified 04/07/22 15:19 Home Medications Medication Instructions Recorded Confirmed Type fluoxetine 20 mg capsule 20 mg PO HS 02/22/22 04/07/22 History Patient hx anesthesia problems: none Family hx anesthesia problems: none Results Review: All pre-operative results and documents have been reviewed as part of the pre-operative evaluation. [facility] Past Medical History Medical History Acute anxiety Depression PTSD (post-traumatic stress disorder) Surgical History Surgical History No pertinent past surgical history Family History Family History Grandparent History of blood clots Heart attack Cerebrovascular accident Mother Histoplasmosis Father Drug addict Other Patient's mother is Social History Social History Smoking status: Current every day smoker Tobacco type: e-cigarettes/vaping Alcohol intake: current Alcohol use details: RARE Substance use: never Substance use type: does not use Last use: stopped at 8 wks of Lack of Transportation: YES Lack of Food: Never True Current Housing: I Have Housing Concerned About Future Housing: No Difficulty Paying Gas/Electric Bills: No Difficulty Paying for Meds: No Currently Unemployed: No Education: High School Diploma/GED Difficulty w/ Childcare or Family Care: No Living arrangements: with family Occupation/Education: unemployed Gender identity (if verbalized by the patient): Female Sexual Orientation (if Verbalized by the Patient): Straight or Heterosexual Spiritual care concerns: No Anes - Eval Final PreProcedure Day of Procedure 04/12/22 09:33 Patient weight: obese Heart: regular rate and rhythm Lungs: decreased breath sounds Airway: Mallampati scale class II Neurological: alert and oriented Last oral intake: >/= 8 hours ASA classification: III Emergent: no Anesthetic plan: proceed Anesthesia type and monitoring: general ETT and standard monitoring Results Review: All pre-operative results and documents have been reviewed as part of the pre-operative evaluation. Informed Consent: The patient's anesthetic plan and its attendant risks and benefits were discussed with the patient/family/POA. Questions were solicited and answers provided to the satisfaction of the patient/family/POA.
[2022-04-12] MEDS: ACETAMINOPHEN 500 MG TABLET 1000 MG PO (10:01)
[2022-04-12] MEDS: KETOROLAC 15 MG/ML VIAL (*BKC) IV PUSH (10:03)
[2022-04-12] MEDS: SCOPOLAMINE 1.5 MG PATCH TRANSDERM (10:06)
--- NOTE | 2022-04-12 10:07 | WPDHPUPDATE1 ---
History and Physical Update Update Date/Time: 04/12/22 10:07 History and Physical has been reviewed, including an updated exam of the patient. There are NO changes in the patient's condition. Risks, benefits, and alternatives have been discussed and questions answered. Patient agrees to proceed with procedure.
[2022-04-12] MEDS: ceFAZolin 2 GM/D5W 50 ML 2 GM/50 ML BAG IVPB (10:41)
[2022-04-12] MEDS: BUPIVACAINE/EPINEPHRINE 0.5% 50 ML VIAL 30 ML INFILTRATE (11:16)
--- NOTE | 2022-04-12 11:20 | W.PM.PROC2 ---
Procedure Note - Detailed Date of Procedure 04/12/22 Pre-op Diagnosis chronic cholecystitis Post-op Diagnosis Same Procedure Performed Laparoscopic cholecystectomy Surgeon Ava Zimmerman MD Anesthesia General Indications 22-year-old female presented to the office complaining of postprandial right upper quadrant abdominal pain associated with nausea and vomiting. Workup including imaging significant for cholecystitis, cholelithiasis. Findings Cholecystitis with cholelithiasis Description of Procedure The patient was taken to the operating room placed in the supine position. After adequate induction of general anesthesia, the patient was prepped and draped in normal sterile fashion. A time-out was then performed to verify the patient's identity as well as the procedure being performed. I then made a 5 mm incision in the infraumbilical region. Through this, a Veress needle was placed into the peritoneal cavity and CO2 gas was then insufflated. After adequate pneumoperitoneum was achieved, the Veress needle was removed and a 5 mm optiview trocar was placed through this incision under direct visualization. I then placed the laparoscope through this trocar site and under direct visualization placed a further 12 mm subxiphoid port as well as 2 additional 5 mm ports in the right upper abdomen. The gallbladder was then identified and was noted to be moderately inflamed and distended. I was able to place a grasper at the dome of the gallbladder and this was retracted anterior and cephalad up over the liver. A 2nd retractor was then placed at the infundibulum and retracted laterally, this allowed visualization of the triangle of Calot. I then was able to visualize the cystic duct in its entirety from its proximal insertion into the gallbladder, to its distal junction with the common hepatic/common bile duct junction. At this point, I carefully skeletonized the proximal cystic duct with the Maryland dissector. I then clipped and transected the proximal cystic duct. Next I visualized the cystic artery. Again the artery was skeletonized, clipped, and transected. I then used the Bovie cautery to take down the peritoneal attachments of the gallbladder off the liver bed. This was somewhat difficult given the amount of inflammation in the posterior space. Once the gallbladder specimen was completely detached, an endo-pouch was placed through the 12 mm port site. I then placed the gallbladder specimen into the Endo pouch and removed the endo-pouch from the 12 mm port site. The specimen will now be sent to pathology for further review. I then copiously irrigated the right upper quadrant. Hemostasis was noted in the liver bed, the clips were noted to be in good position on both the cystic duct stump and the cystic artery stump. No other pathology was noted in the right upper quadrant. I then moved the laparoscope to the subxiphoid port. No iatrogenic injury or other pathology was noted in the lower abdomen. I then closed the 12 mm trocar site under direct visualization using the Stephan cone and 0 Vicryl suture. At this point, the abdomen was desufflated and all ports removed. All port sites were then closed with 4.O Monocryl subcuticular sutures. Dermabond was placed on each incision. The patient tolerated the procedure well, was extubated in the operating room postoperative and will be transferred to the recovery room in stable condition Estimated Blood Loss 5 Drains No Packing No Pathology Yes Complications No immediate complications Condition Stable Disposition PACU [facility] Billing Surgery - Charge Forward: Surgery Billing
[2022-04-12] MEDS: ONDANSETRON INJ 4 MG/2 ML VIAL IV PUSH (12:25)
[2022-04-12] MEDS: fentaNYL CITRATE INJ (*CRX) 100 MCG/2 ML VIAL 25 MCG IV PUSH ×2 (12:29→12:31)
[2022-04-12] MEDS: oxyCODONE HCL (*CRX) 5 MG TAB IR PO (13:10)
--- NOTE | 2022-04-12 14:25 | SUR.PHASEII ---
1415: patient called post op and verbalized additional instructions with incisional care.
== END 2022-04-12 14:05 | disposition home or self-care (01) ==
PROVIDERS: Visit Provider Surgery
PROC: 0FT44ZZ Resection of Gallbladder, Percutaneous Endoscopic Approach (ICD-10-PCS; CPT 47562; principal; 2022-04-12 11:00)
DX: K81.1 Chronic cholecystitis (principal); F41.9 Anxiety disorder, unspecified; F32.A Depression, unspecified; F43.10 Post-traumatic stress disorder, unspecified; F17.290 Nicotine dependence, other tobacco product, uncomplicated; E66.9 Obesity, unspecified; Z68.30 Body mass index [BMI] 30.0-30.9, adult
CPT/HCPCS: 47562; 36415; 86850; 86880; 86900; 86901; 86902; 88304; A9270; J0690; J1100; J1885; J2250; J2405; J2704; J2710; J3010; J7030; J7120

== ENCOUNTER 2022-07-17 01:23 | Day surgery (SDC) | payer OTHER, SELFPAY ==
--- NOTE | 2022-05-04 12:42 | PC.NURSE ---
Report to the Outpatient Waiting Room, entrance under the green pavilion located off [facility], at time 0800 on date 05/15/22. Planned Procedure Time: 1000. Time changes happen often and if your time is changed the preop area will call you the afternoon before. - You and your visitor will be asked to self-screen and do not enter if you have any COVID symptoms. - Only one visitor is requested with a max of two and NO children visitors are allowed at this time. - The patient visitor may be requested to leave or wait in car when not with patient due to distancing restrictions. - A mask is optional within the hospital at this time. Patients may have clear liquids (water, carbonated beverages, clear teas, apple juice) until 3 hours prior to surgery with a maximum of 20 ounces. - No food from midnight until time of surgery Take the following medications with a SIP of water the morning of surgery: N/A DO NOT STOP ANY OF YOUR OTHER PRESCRIPTION MEDICATIONS PRIOR TO SURGERY EXCEPT THE FOLLOWING Medications to discontinue per physician: N/A Date to take last dose: N/A Please no make-up, nail bulgarian, hairspray, perfume, deodorant, or body powder the day of surgery. No jewelry (including any body piercings) or valuables the day of surgery, leave them at home. Please take a shower or bath the night before, or the morning of, surgery with an antibacterial soap. Wear comfortable, loose fitting clothing. - Jewelry must be removed prior to entering the operating room. Rings and piercings that are not removed may be cut off. - The hospital will not accept responsibility for valuables. - Please leave all valuables, including medications, at home the day of surgery. If you are going home after surgery, a licensed starting gate driver must drive you home. - NO public transportation without another adult if you receive anesthesia. - We recommend that an adult stay with you for 24 hours following discharge. - We also recommend that you do not drive, make important decision, drink alcoholic beverages, or take any drugs that were not prescribed by your health care provider for at least 24 hours after your discharge time. Follow any additional instructions given to you from your surgeon. If you or anyone in your household have experienced Covid symptoms in the past week, please notify your surgeon or the nurse liaison at the phone number below for possible testing. Telephone instructions given to PT - ZEUS YEE and asked if any additional questions and then verbalized understanding. Patient advised to call surgeon office or pre surgery nurse liaison [phone] if any additional questions.
[2022-05-04 12:44] VITALS: BMI 30.6
[2022-07-05 12:01] VITALS: BMI 30.6
--- NOTE | 2022-07-05 12:02 | PC.NURSE ---
Report to the Outpatient Waiting Room, entrance under the green pavilion located off [facility], at time 0700 on date 07/17/22. Planned Procedure Time: 0900. Time changes happen often and if your time is changed the preop area will call you the afternoon before. - You and your visitor will be asked to self-screen and do not enter if you have any COVID symptoms. - A mask is optional within the hospital at this time. Patients may have clear liquids (water, carbonated beverages, clear teas, apple juice) until 3 hours prior to surgery with a maximum of 20 ounces. - No food from midnight until time of surgery Take the following medications with a SIP of water the morning of surgery: N/A DO NOT STOP ANY OF YOUR OTHER PRESCRIPTION MEDICATIONS PRIOR TO SURGERY ?EXCEPT THE FOLLOWING Medications to discontinue per physician: N/A Date to take last dose: N/A Please no make-up, nail faroese, hairspray, perfume, deodorant, or body powder the day of surgery. No jewelry (including any body piercings) or valuables the day of surgery, leave them at home. Please take a shower or bath the night before, or the morning of, surgery with an antibacterial soap. Wear comfortable, loose fitting clothing. - Jewelry must be removed prior to entering the operating room. Rings and piercings that are not removed may be cut off. - The hospital will not accept responsibility for valuables. - Please leave all valuables, including medications, at home the day of surgery. If you are going home after surgery, a licensed electric lift truck driver must drive you home. - NO public transportation without another adult if you receive anesthesia. - We recommend that an adult stay with you for 24 hours following discharge. - We also recommend that you do not drive, make important decision, drink alcoholic beverages, or take any drugs that were not prescribed by your health care provider for at least 24 hours after your discharge time. Follow any additional instructions given to you from your surgeon. If you or anyone in your household have experienced Covid symptoms in the past week, please notify your surgeon or the nurse liaison at the phone number below for possible testing. Telephone instructions given to PT - ZEUS YEE and asked if any additional questions and then verbalized understanding. Patient advised to call surgeon office or pre surgery nurse liaison [phone] if any additional questions.
[2022-07-17] VITALS (8 sets, daily range): BP systolic 92–110; BP diastolic 50–82; PULSE 60–76; RESP 14–16; TEMP 36.2; O2SAT 99–100
--- NOTE | 2022-07-17 07:29 | P.HP_ITS ---
H&P: HPI History of Present Illness Date/Time: 07/17/22 07:29 Chief Complaint: sterilization Narrative: Elmira is a who presents for [facility] bilateral salpingectomy for sterilization. She has a very significant psychiatric history of anxiety/depression/and PTSD and she struggles greatly during and does not want further children. Had dean done in April of this year. Has a family history of addiction and has requested no narcotic pain medication for at home. Review of Systems Review of Systems: All systems reviewed & are unremarkable except as noted in HPI and below PMFSH Past Medical History Medical History (Updated 07/17/22 @ 07:31 by Casandra Fitzpatrick MD) Acute anxiety Depression PTSD (post-traumatic stress disorder) Surgical History Surgical History (Updated 04/26/22 @ 09:22 by Jenni Staples) S/P laparoscopic cholecystectomy 04/12/22 Family History Family History Grandparent History of blood clots Heart attack Cerebrovascular accident Mother Histoplasmosis Father Drug addict Other Patient's mother is Social History Social History Smoking status: Current every day smoker Tobacco type: e-cigarettes/vaping Alcohol intake: current Alcohol use details: RARE Substance use: never Substance use type: does not use Last use: stopped at 8 wks of Lack of Transportation: YES Lack of Food: Never True Current Housing: I Have Housing Concerned About Future Housing: No Difficulty Paying Gas/Electric Bills: No Difficulty Paying for Meds: No Currently Unemployed: No Education: High School Diploma/GED Difficulty w/ Childcare or Family Care: No Living arrangements: with family Occupation/Education: unemployed Gender identity (if verbalized by the patient): Female Sexual Orientation (if Verbalized by the Patient): Straight or Heterosexual Spiritual care concerns: No Meds Home Medications and Allergies Home Medications Medication Instructions Recorded Confirmed Type fluoxetine 20 mg capsule 40 mg PO HS 02/22/22 07/17/22 History Allergies Allergy/AdvReac Type Severity Reaction Status Date / Time No Known Allergies Allergy Verified 07/17/22 07:10 Exam Const: General: no acute distress Resp: Effort & Inspection: normal respiratory effort Auscultation: clear to auscultation bilaterally Cardio: Rate: regular rate Rhythm: regular rhythm GI: GI Palp: Yes Soft to palpation Extrem: General: normal to inspection Assessment and Plan Assessment and plan (1) Admission for sterilization: Code(s): Z30.2 - Encounter for sterilization Status: Acute Plan consented for [facility] bilateral salpingectomy for sterilization will proceed pt aware of RBA
[2022-07-17] MEDS: ACETAMINOPHEN 500 MG TABLET 1000 MG PO (07:40)
--- NOTE | 2022-07-17 07:51 | P.PNAN_ITS ---
Anes - Initial Pre Proc Eval Procedure: Operation Date: 07/17/22 09:00 Proposed Procedures p Laparoscopic Bilateral Salpingectomy - Casandra Fitzpatrick MD Date/Time: 07/17/22 07:51 Surgeon: Casandra Fitzpatrick MD Pre Op Diagnosis: sterilization Patient Data Age: 22 Gender: F Height: 1.65 m Weight: 83.5 kg Allergies Allergy/AdvReac Type Severity Reaction Status Date / Time No Known Allergies Allergy Verified 07/17/22 07:10 Home Medications Medication Instructions Recorded Confirmed Type fluoxetine 20 mg capsule 40 mg PO HS 02/22/22 07/17/22 History Patient hx anesthesia problems: none Family hx anesthesia problems: none Results Review: All pre-operative results and documents have been reviewed as part of the pre- operative evaluation. [facility] Past Medical History Medical History Acute anxiety Depression PTSD (post-traumatic stress disorder) Surgical History Surgical History S/P laparoscopic cholecystectomy 04/12/22 Family History Family History Grandparent History of blood clots Heart attack Cerebrovascular accident Mother Histoplasmosis Father Drug addict Other Patient's mother is Social History Social History Smoking status: Current every day smoker Tobacco type: e-cigarettes/vaping Alcohol intake: current Alcohol use details: RARE Substance use: never Substance use type: does not use Last use: stopped at 8 wks of Lack of Transportation: YES Lack of Food: Never True Current Housing: I Have Housing Concerned About Future Housing: No Difficulty Paying Gas/Electric Bills: No Difficulty Paying for Meds: No Currently Unemployed: No Education: High School Diploma/GED Difficulty w/ Childcare or Family Care: No Living arrangements: with family Occupation/Education: unemployed Gender identity (if verbalized by the patient): Female Sexual Orientation (if Verbalized by the Patient): Straight or Heterosexual Spiritual care concerns: No Anes - Eval Final PreProcedure Day of Procedure 07/17/22 07:51 Patient weight: overweight Heart: regular rate and rhythm Lungs: decreased breath sounds Airway: Mallampati scale class II Neurological: other (alert) Last oral intake: >/= 8 hours ASA classification: III Emergent: no Anesthetic plan: proceed Anesthesia type and monitoring: general ETT and standard monitoring Results Review: All pre-operative results and documents have been reviewed as part of the pre- operative evaluation. Informed Consent: The patient's anesthetic plan and its attendant risks and benefits were discussed with the patient/family/POA. Questions were solicited and answers provided to the satisfaction of the patient/family/POA.
[2022-07-17] MEDS: LACTATED RINGERS 1,000 ML 30 ML IV CONT ×2 (08:00→10:30)
[2022-07-17] MEDS: KETOROLAC 15 MG/ML VIAL (*BKC) IV PUSH (08:16)
[2022-07-17] MEDS: MIDAZOLAM HCL (*CRX) 2 MG/2 ML VIAL IV PUSH (08:57)
--- NOTE | 2022-07-17 08:58 | WPDHPUPDATE1 ---
History and Physical Update Update Date/Time: 07/17/22 08:58 History and Physical has been reviewed, including an updated exam of the patient. There are NO changes in the patient's condition. Risks, benefits, and alternatives have been discussed and questions answered. Patient agrees to proceed with procedure.
[2022-07-17] MEDS: ceFAZolin 2 GM/D5W 50 ML 2 GM/50 ML BAG IVPB (09:05)
[2022-07-17] MEDS: BUPIVACAINE/EPINEPHRINE 0.5% 50 ML VIAL 10 ML INFILTRATE (09:30)
--- NOTE | 2022-07-17 09:49 | W.PM.PROC2 ---
Procedure Note - Detailed Date of Procedure 07/17/22 Pre-op Diagnosis sterilization Post-op Diagnosis Same Procedure Performed Laparoscopic Bilateral Salpingectomy Surgeon Casandra Fitzpatrick MD Anesthesia General Indications undesired future fertility Findings normal uterus, tubes and ovaries Description of Procedure The patient was taken to the OR and placed in dorthal lithotomy in [facility]. She received general anesthesia. A speculum was placed and the cervix grasped with a single tooth tenaculum and an acorn uterine manipulator placed easily. A elder catheter had previously been placed. She had received preoperative antibiotics. A 5mm subumbilical skin incision was made and using direct visualization, the trocar was inserted intraperitoneally. The abdomen was insufflated and the pelvis inspected with the above findings. Bilateral 5mm incisions were made and trocars were placed under direct visualization. The right tube was grasped and elevated and using the Ligasure device, the tube was sequentially cauterized and ligated and removed through the trocar and sent to pathology. Similarly, on the left, the tube was removed using the Ligasure device. Hemostasis was noted. The upper abdomen was inspected and noted to be normal. The trocars were removed and the Co2 was removed from the abdomen. The skin was closed with 4-0 vicryl and steri strips. The patient tolerated the procedure well and was taken to the recovery room in stable condition. EBL 10cc. Estimated Blood Loss 10 Drains No Packing No Pathology Yes Complications No immediate complications Condition Stable Disposition Same day
== END 2022-07-17 12:03 | disposition home or self-care (01) ==
PROVIDERS: Visit Provider Obstetrics & Gynecology
PROC: (CPT 49320; principal; 2022-07-17 09:00)
DX: Z30.2 Encounter for sterilization (principal); F32.A Depression, unspecified; F41.9 Anxiety disorder, unspecified; F43.10 Post-traumatic stress disorder, unspecified; F17.290 Nicotine dependence, other tobacco product, uncomplicated
CPT/HCPCS: 58661; 36415; 80053; 85025; 85610; 88302; 96361; 96374; 96375; 96376; 99284; A9270; J0330; J0690; J1100; J1170; J1885; J2060; J2250; J2405; J2704; J3010; J7030; J7120

== ENCOUNTER 2023-06-24 21:51 | Emergency (ER) | payer MEDICAID, SELFPAY ==
--- NOTE | ~2023-06-24 | CT_ITS ---
Non-contrast CT scan of the Abdomen and Pelvis Clinical indication: Abdominal pain Technique: 2.5 mm axial scans were obtained through the abdomen and pelvis without intravenous or or al contrast. Dose reduction technique was used on this scan by utilizing automated exposure control a nd iterative reconstruction technique. The dose-length product (DLP) was 799.42 mGy-cm. COMPARISON: 07/18/2022 Findings: Images through the lung bases reveal no abnormalities. There is no evidence of renal or ureteral calculi. The kidneys and the ureters are nondilated. The liver, spleen, pancreas, and adrenals appear normal. Cholecystectomy clips are present. There is no aortic aneurysm. There is no evidence of bowel obstruction. Images through the pelvis were performed. There is no evidence of ascites or lymphadenopathy. Urinary bladder unremarkable. No pelvic mass seen. No ascites. Impression: No significant abnormality seen. Reviewed, dictated and finalized at [facility]. Impression: No significant abnormality seen.
[2023-06-24 21:56] VITALS: BP 112/77; PULSE 88; RESP 18; TEMP 36.5; O2SAT 100
--- NOTE | 2023-06-24 22:58 | ECG_ITS ---
SEE SCANNED COPY FOR CONFIRMED REPORT MTDD
--- NOTE | 2023-06-24 22:59 | ED.GIBLEED ---
HPI - GI Bleed General Chief complaint: GI Bleed Stated complaint: throwing up and pooping blood Time Seen by Provider: 06/24/23 22:47 History of Present Illness HPI Narrative: 23-year-old female with history of anxiety, depression, PTSD, s/p tubal ligation and cholecystectomy presents to emergency department with her boyfriend at bedside for abdominal pain and reported hematemesis and hematochezia for the past 4 days. Patient states she has been noticing large clots in her stool for the past 4 days, 3 days ago she began developing clots in her vomit. She is reporting diffuse abdominal pain that is now radiating into her back. Her at bedside reports a history of chronic abdominal pain since she had a cholecystectomy approximately 1 year ago. Patient denies chest pain, fever, dysuria or hematuria. LMP 05/30. She denies prior EGD or colonoscopy, however states that she was diagnosed with gastric ulcers when she was 8 years old. Patient endorses a history of hemorrhoids, however feels like they have resolved. Related Data Home Medications Medication Instructions Recorded Confirmed fluoxetine 20 mg capsule 40 mg PO HS 02/22/22 07/17/22 Allergies Allergy/AdvReac Type Severity Reaction Status Date / Time No Known Allergies Allergy Verified 06/24/23 21:52 Review of Systems Review of Systems: CONSTITUTIONAL: Denies fever, chills, or sweats. EYES: Denies visual changes, redness, or discharge. ENT: Denies rhinorrhea, congestion, sore throat, or otalgia. CARDIOVASCULAR: Denies chest pain, palpitations, or edema. RESPIRATORY: Denies cough or dyspnea. GASTROINTESTINAL: See HPI GENITOURINARY: Denies dysuria or hematuria. SKIN: Denies rash or itching. MUSCULOSKELETAL: Denies back pain, joint pain, or myalgia. NEUROLOGIC: Denies headache, numbness, or weakness. PSYCHIATRIC: Denies anxiety or depression. [facility] Past Medical History Medical History Acute anxiety Depression PTSD (post-traumatic stress disorder) Surgical History Surgical History S/P laparoscopic cholecystectomy 04/12/22 Family History Family History Grandparent History of blood clots Heart attack Cerebrovascular accident Mother Histoplasmosis Father Drug addict Other Patient's mother is Social History Social History Smoking status: Current every day smoker Tobacco type: e-cigarettes/vaping Alcohol intake: current Alcohol use details: RARE Substance use: never Substance use type: does not use Last use: stopped at 8 wks of Lack of Transportation: YES Lack of Food: Never True Current Housing: I Have Housing Concerned About Future Housing: No Difficulty Paying Gas/Electric Bills: No Difficulty Paying for Meds: No Currently Unemployed: No Education: High School Diploma/GED Difficulty w/ Childcare or Family Care: No Living arrangements: with family Occupation/Education: unemployed Gender identity (if verbalized by the patient): Female Sexual Orientation (if Verbalized by the Patient): Straight or Heterosexual Spiritual care concerns: No Exam Narrative: GENERAL: Nontoxic appearing. Laughing upon initial evaluation, however by the end of evaluation she is tearful and very anxious HEAD: Normocephalic, atraumatic. EYES: PERRLA and EOMI. ENT: Nares clear, no rhinorrhea or epistaxis. Mucous membranes moist. NECK: Supple. CHEST: Clear to auscultation. No respiratory distress. HEART: Regular rate and rhythm. No murmur heard. Normal peripheral pulses. ABDOMEN: Normoactive bowel sounds. Abdomen soft with generalized abdominal tenderness and guarding. Rectal exam chaperoned by Pietro Saldaña -no external or internal hemorrhoids. No gross hematochezia
--- NOTE | 2023-06-24 23:11 | PC.NURSE ---
this rn assumed care of patient. this rn took patient report from Yesenia hernandez.
--- NOTE | 2023-06-24 23:12 | PC.NURSE ---
pt while I was in another room started to laugh and joke with friends that she was dying and that she forced herself to eat [employer] today because she wanted to make sure she vomited and could show everyone and they'd believe her. Patient seems to go from laughing and joking to inconsolable.
[2023-06-24] MEDS: PANTOPRAZOLE SODIUM IV 40 MG VIAL IV PUSH (23:24)
[2023-06-24] MEDS: SODIUM CHLORIDE 0.9% IV 1,000 ML 999 ML IV CONT (23:24)
[2023-06-24] MEDS: ONDANSETRON INJ 4 MG/2 ML VIAL IV PUSH (23:25)
[2023-06-24] MEDS: LORazepam INJ (*CRX) 2 MG/ML VIAL 1 MG IV PUSH (23:25)
[2023-06-24 23:30] VITALS: BP 122/85; PULSE 79; RESP 15; O2SAT 100
[2023-06-24 23:37] LABS: Basophils Absolute Auto 0.1 K/mm3 (0.0-0.1); Basophils Percent Auto 0.6 % (0.2-1.2); Eosinophils Absolute Auto 0.1 K/mm3 (0-0.3); Eosinophils Percent Auto 1.7 % (0-4.4); Hematocrit 38.4 % (37.0-47.0); Immature Granulocyte Absolute 0.01 K/mm3 (0.00-0.031); Immature Granulocyte Percent A 0.1 % (0-0.5); Lymphocytes Absolute Auto 2.65 K/mm3 (0.9-3.2); Lymphocytes Percent Auto 34.1 % (18.3-44.2); Mean Corpuscular HGB Conc 31.3 g/dl (32-36); Mean Corpuscular Hemoglobin 24.7 pg (26-34); Mean Corpuscular Volume 79.2 fl (80-100); Monocytes Absolute Auto 0.4 K/mm3 (0.1-0.6); Monocytes Percent Auto 5.3 % (2.6-8.5); Neutrophils Absolute Auto 4.5 K/mm3 (1.3-6.7); Neutrophils Percent Auto 58.2 % (45.5-73.1); Platelet Count Result 249 k/mm3 (150-375); Red Blood Count 4.85 M/mm3 (4.2-5.4); White Blood Count 7.8 K/mm3 (4.5-10.0)
[2023-06-24 23:48] LABS: Alanine Aminotransferase 14 U/L (6-35); Albumin Level 4.9 g/dL (3.5-5.1); Alkaline Phosphatase 61 U/L (38-126); Anion Gap 10 mmol/L (4-12); Aspartate Amino Transferase 21 U/L (14-36); Bilirubin,Total 0.3 mg/dL (0.2-1.3); Blood Urea Nitrogen 10 mg/dL (7-17); Calcium 9.3 mg/dL (8.4-10.2); Carbon Dioxide 23 mmol/L (22-30); Chloride 106 mmol/L (98-107); Estimated CRCL calculation 143 ml/min; Estimated Glomerular Filt Rate > 60; Glucose 78 mg/dL (65-110); Lactic Acid Reflex 2.1 mmol/L (0.7-2.0); Lipase 67 U/L (23-300); Potassium 3.7 mmol/L (3.4-5.0); Sodium 139 mmol/L (137-145)
[2023-06-25 01:04] VITALS: BP 104/70; PULSE 72; RESP 18; O2SAT 100
[2023-06-25 01:07] VITALS: BP 104/70; PULSE 73; RESP 12; O2SAT 100
[2023-06-25 01:24] LABS: Appearance Urine Clear (Clear); Bacteria Urine Rare /hpf; Bilirubin Urine Negative (Negative); Blood Urine Negative (Negative); Color Urine Yellow (Yellow); Glucose Urine UA Negative (Negative); Ketones Urine Negative (Negative); Leukocyte Esterase Ur Trace LEU/UL (Negative); Nitrate Urine Negative (Negative); Non Pathogenic Casts 0-2; Protein Urine Negative (Negative); Specific Grav Ur 1.023 (1.001-1.035); Squamous Epithelial Cell Urine Occasional /hpf (Few); Urobilinogen Urine 0.2 mg/dL (<2.0); WBC Urine 0-5 /hpf (0-3); pH Urine 6.5 (5.0-9.0)
[2023-06-25 02:06] LABS: Add Urine Microscopic? YES
[2023-06-25 02:34] LABS: INR 1.1; Prothrombin Time 14.4 Seconds (11.1-14.7)
[2023-06-25 02:35] LABS: Reflex Lactic Acid Yes or No Add Lactic
== END 2023-06-25 01:44 | disposition home or self-care (01) ==
PROVIDERS: Emergency Provider Physician Assistant
DX: R10.84 Generalized abdominal pain (principal); F41.9 Anxiety disorder, unspecified; F32.A Depression, unspecified; F43.10 Post-traumatic stress disorder, unspecified; F17.290 Nicotine dependence, other tobacco product, uncomplicated; Z90.49 Acquired absence of other specified parts of digestive tract
CPT/HCPCS: 36415; 74176; 80053; 81001; 83605; 83690; 85025; 85610; 85730; 93005; 96361; 96374; 96375; 99284; C9113; J2060; J2405; J7030

== ENCOUNTER 2023-06-26 12:06 | Outpatient (CLI) | payer MEDICAID, SELFPAY ==
--- NOTE | ~2023-06-26 | XR_ITS ---
EXAMINATION: XR abdomen/kub 1V DATE: 06/26/2023 12:28 INDICATION: Unspecified abdominal pain. Distention. TECHNIQUE: A supine view of the abdomen on 2 radiographs was obtained. COMPARISON: CT abdomen and pelvis 06/24/2023 FINDINGS: There are no dilated loops of bowel. There is a small volume of stool in the colon. Surgica l clips in the right upper quadrant are likely from cholecystectomy. There is a phlebolith in right p yareli. IMPRESSION: 1. Normal bowel gas pattern. Reviewed, dictated and finalized at location A.
[2023-06-26 13:23] LABS: Hematocrit 37.8 % (37.0-47.0); Hemoglobin 11.7 g/dL (12.0-15.0); Mean Corpuscular Hemoglobin 24.5 pg (26-34); Mean Corpuscular Volume 79.1 fl (80-100); Mean Platelet Volume 11.2 fl (7.4-10.4); Platelet Count Result 251 k/mm3 (150-375); Red Blood Count 4.78 M/mm3 (4.2-5.4); Red Cell Distribution Width 15.9 % (11.5-14.5); White Blood Count 6.9 K/mm3 (4.5-10.0)
[2023-06-26 13:24] LABS: Anion Gap 8 mmol/L (4-12); Blood Urea Nitrogen 10 mg/dL (7-17); CRP 0.8 mg/dL (<1.0); Calcium 9.1 mg/dL (8.4-10.2); Carbon Dioxide 24 mmol/L (22-30); Chloride 108 mmol/L (98-107); Estimated Glomerular Filt Rate > 60; Glucose 90 mg/dL (65-110); Lipase 82 U/L (23-300); Potassium 4.2 mmol/L (3.4-5.0); Sodium 140 mmol/L (137-145)
[2023-06-26 15:24] LABS: Erythrocyte Sedimentation Rate 17 mm/hr (0-20)
[2023-06-29 03:49] LABS: Immunoglobulin A 174 mg/dL (47-310); TTG IGA AB <1.0 U/mL
== END 2023-06-26 12:07 | disposition home or self-care (01) ==
PROVIDERS: Visit Provider Nurse Practitioner
DX: R10.9 Unspecified abdominal pain (principal); R14.0 Abdominal distension (gaseous); R19.15 Other abnormal bowel sounds; K92.0 Hematemesis; K92.1 Melena; K52.9 Noninfective gastroenteritis and colitis, unspecified
CPT/HCPCS: 36415; 74018; 80048; 82728; 82784; 83690; 85027; 85652; 86140; 86364

== ENCOUNTER 2023-07-05 08:03 | Day surgery (SDC) | payer MEDICAID, SELFPAY ==
[2023-06-27 10:04] VITALS: BMI 34.2
[2023-06-27 13:49] VITALS: BMI 34.1
--- NOTE | 2023-07-04 14:54 | WPDANESEPPF ---
Anes - Initial Pre Proc Eval Procedure: Operation Date: 07/05/23 10:30 Proposed Procedures p Esophagogastroduodenoscopy - Andrew Marks MD s Diagnostic Colonoscopy - Andrew Marks MD Date/Time: 07/04/23 14:54 Surgeon: Andrew Marks MD Pre Op Diagnosis: Hematemesis,nausea/vomiting,abdominal distension Patient Data Age: 23 Gender: F Height: 1.65 m Weight: 93 kg Allergies Allergy/AdvReac Type Severity Reaction Status Date / Time No Known Allergies Allergy Verified 07/05/23 09:27 Home Medications Medication Instructions Recorded Confirmed Type amitriptyline 25 mg tablet 25 mg PO QHS #30 tabs 06/26/23 07/05/23 Rx dicyclomine 20 mg tablet 20 mg PO QID #120 tabs 06/26/23 07/05/23 Rx ondansetron 4 mg disintegrating 4 mg PO Q8H #60 tabs 06/26/23 07/05/23 Rx tablet pantoprazole 40 mg tablet,delayed 40 mg PO BID #60 tabs 06/26/23 07/05/23 Rx release Patient hx anesthesia problems: none Family hx anesthesia problems: none Results Review: All pre-operative results and documents have been reviewed as part of the pre-operative evaluation. [facility] Past Medical History Medical History (Updated 06/26/23 @ 12:53 by Xenia Crandall APRN) Acute anxiety Depression PTSD (post-traumatic stress disorder) Surgical History Surgical History S/P laparoscopic cholecystectomy 04/12/22 Family History Family History Grandparent History of blood clots Heart attack Cerebrovascular accident Mother Histoplasmosis Father Drug addict Other Patient's mother is Social History Social History Smoking status: Current every day smoker Tobacco type: e-cigarettes/vaping Alcohol intake: current Alcohol use details: 2X monthly Substance use: current Substance use type: marijuana Last use: Daily Lack of Transportation: YES Lack of Food: Never True Current Housing: I Have Housing Concerned About Future Housing: No Difficulty Paying Gas/Electric Bills: No Difficulty Paying for Meds: No Currently Unemployed: No Education: High School Diploma/GED Difficulty w/ Childcare or Family Care: No Living arrangements: with family Occupation/Education: unemployed Gender identity (if verbalized by the patient): Female Sexual Orientation (if Verbalized by the Patient): Straight or Heterosexual Spiritual care concerns: No Anes - Eval Final PreProcedure Day of Procedure Patient weight: obese Heart: regular rate and rhythm Lungs: clear to auscultation Airway: Mallampati scale class II Neurological: alert and oriented Last oral intake: >/= 8 hours ASA classification: III Emergent: no Anesthetic plan: proceed Anesthesia type and monitoring: general GIVS and standard monitoring
[2023-07-05 09:15] VITALS: BP 115/87; PULSE 83; RESP 18; TEMP 36.9; O2SAT 100
[2023-07-05] MEDS: LACTATED RINGERS 1,000 ML 150 ML IV CONT (09:43)
--- NOTE | 2023-07-05 09:43 | SUR.PREOP ---
PT CRYING WHILE RN STARTED IV. IV INSERTED WITHOUT DIFFICULTY. PT COMFORTED. PT'S SIG OTHER AT BEDSIDE. HE'S TRYING TO CALM PT.
--- NOTE | 2023-07-05 09:50 | WPDHPUPDATE1 ---
History and Physical Update Update Date/Time: 07/05/23 09:50 History and Physical has been reviewed, including an updated exam of the patient. There are NO changes in the patient's condition. Risks, benefits, and alternatives have been discussed and questions answered. Patient agrees to proceed with procedure.
[2023-07-05 11:24] VITALS: BP 145/56; PULSE 101; RESP 12; O2SAT 97
[2023-07-05 11:34] VITALS: BP 92/63; PULSE 87; RESP 14; O2SAT 97
[2023-07-05 11:44] VITALS: BP 96/74; PULSE 84; RESP 16; O2SAT 100
--- NOTE | 2023-07-05 12:22 | SUR.PHASEII ---
d/c late d/t waiting for dr to talk to patient
--- NOTE | 2023-07-05 14:11 | WPDANESPN ---
Anes - Prog Note Post-Op Date/Time: 07/05/23 14:11 Cardiovascular status: normal Respiratory status: normal Airway patency: baseline Mental status: baseline Post-Op hydration status: normal Vital Signs: Last Vital Signs Temp 36.9 C 07/05/23 09:15 Pulse 84 07/05/23 11:44 Resp 16 07/05/23 11:44 BP 96/74 L 07/05/23 11:44 Pulse Ox 100 07/05/23 11:44 O2 Del Method Room Air 07/05/23 11:44 Pain Score (VAS): 0 I/O: Intake & Output 07/04/23 07/05/23 07/05/23 23:59 07:59 15:59 Intake Total 800 Balance 800 Post-procedural complaints: none Patient Feedback: Patient satisfied with anesthetic care. Other Findings: Patient vital signs back to baseline. Patient denies nausea and vomiting. Patient's pain under control. Patient OK for discharge.
== END 2023-07-05 12:18 | disposition home or self-care (01) ==
PROVIDERS: Visit Provider Internal Medicine Gastroenterology
PROC: 0DJ08ZZ Inspection of Upper Intestinal Tract, Via Natural or Artificial Opening Endoscopic (ICD-10-PCS; CPT 43235; principal; 2023-07-05 10:30)
PROC: 0DJD8ZZ Inspection of Lower Intestinal Tract, Via Natural or Artificial Opening Endoscopic (ICD-10-PCS; CPT 45378; 2023-07-05 10:30)
DX: K92.1 Melena (principal); K92.0 Hematemesis
CPT/HCPCS: 45378; 43239